=== PATIENT | male | born 1975 | race Two or more races ===

== ENCOUNTER 2020-04-18 13:57 | Inpatient (IN) | payer OTHER ==
[~2020-04-18] VITALS: Ht 208.3 cm; Wt 64.9 kg
--- NOTE | 2020-04-18 14:00 | NUR ---
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 COWORKER DIDN'T SEE HIM FOR ABOUT 30MIN, THEN FOUND HIM LYING PRONE IN A DITCH. PT WAS ALERT & RESPONSIVE, VERY SHAKY. PT DENIES ANY MEDICAL HX/DRUG OR ETOH USE. VS PER EMS: HR 130s, BP 160s/90s, 90% ON RA AND 99% ON 2L, BS 153. PT ARRIVES TO ED A&OX4, STILL VERY SHAKY. NO OBVIOUS INJURIES NOTED. NO FAMILY PRESENT. ERP AT BS IMMEDIATELY.
[2020-04-18] MEDS ORDERED: LORazepam 2 MG/ML, 1ML ONE (14:19)
[2020-04-18] MEDS ORDERED: SODIUM CHLORIDE FLUSH 10ML SYR IVF ONE (14:30)
[2020-04-18] MEDS ORDERED: LORazepam 2 MG/ML, 1ML IVPush ONE (14:30)
[2020-04-18] MEDS ORDERED: SODIUM CHLORIDE 0.9% 1,000ML IVBOLUS ONE ×3 (14:30→16:30)
[2020-04-18 14:33] LABS: MEAN CORPUSCULAR HEMOGLOBIN 33.2 pg (27.5-34.5); MEAN CORPUSCULAR HGB CONC 33.3 g/dL (33.2-36.2); MEAN PLATELET VOLUME 7.5 fL (7.4-10.4); PLATELET COUNT 93 x10^3/uL (130-400); RED BLOOD COUNT 4.16 x10^6/uL (4.38-5.82); RED CELL DISTRIBUTION WIDTH 13.7 % (9.4-14.8)
[2020-04-18 14:48] LABS: ALANINE AMINOTRANSFERASE 86 U/L (12-78); ALBUMIN 3.8 g/dL (3.4-5.0); ANION GAP 9 mmol/L (5-15); CHLORIDE 105 mmol/L (98-107); CREATININE 0.99 mg/dL (0.7-1.3)
[2020-04-18 14:50] LABS: ALKALINE PHOSPHATASE 102 U/L (45-117); BILIRUBIN,TOTAL 0.9 mg/dL (0.2-1.0); TOTAL PROTEIN 7.7 g/dL (6.4-8.2)
[2020-04-18 14:56] LABS: SALICYLATE LEVEL < 1.7 mg/dL (2.8-20.0)
[2020-04-18 15:09] LABS: MD YES
[2020-04-18 15:13] LABS: BAND#(MANUAL) 0.06 x10^3/uL; BANDS%(MANUAL) 1 % (0-7); BASOS#(MANUAL) 0.06 x10^3/uL (0-0.1); BASOS% (MANUAL) 1 % (0-1); EOS#(MANUAL) 0.06 x10^3/uL (0.0-0.4); EOS% (MANUAL) 1 % (1-7); LYMPH#(MANUAL) 0.26 x10^3/uL (1-3.4); LYMPHS% (MANUAL) 4 % (22-44); METAMYELOCYTES# (MANUAL) 0.06 x10^3/uL (0-0); METAMYELOCYTES% (MANUAL) 1 % (0-1); MONOS#(MANUAL) 0.58 x10^3/uL (0.3-2.7); MONOS% (MANUAL) 9 % (2-9); SEG#(MANUAL) 5.31 x10^3/uL (1.8-6.8); SEGS% (MANUAL) 83 % (42-75)
[2020-04-18 15:14] LABS: <PLATELET ESTIMATE> DECREASED
[2020-04-18 15:15] LABS: <PLT MORPHOLOGY> NORMAL PLT MORPH
--- NOTE | 2020-04-18 15:31 | NUR ---
PT STOOD AT SIDE OF BED WITH STAND BY ASSIST TO VOID FOR URINE SAMPLE. URINE SLIGHTLY DARK. PT C/O THIRST, WATER PROVIDED PER ERP. 2ND LITER BOLUS INFUSING. PT STILL VERY SHAKY. ERP NOTIFIED.
--- NOTE | 2020-04-18 15:56 | NUR ---
PT STATES HE'S DOING OKAY, LYING IN GURNEY. HR DOWN TO 110s NOW AFTER 2ND LITER NS. LESS SHAKY. RV'WD POC WITH PT, HE VERBALIZES UNDERSTANDING.
[2020-04-18 15:59] LABS: MICROSCOPIC AUTO
[2020-04-18 16:04] LABS: AMPHETAMINE SCREEN, URINE Negative (Negative); BARBITURATE SCREEN, URINE Negative (Negative); BENZODIAZEPINE SCREEN, URINE Negative (Negative); CANNABINOID SCREEN, URINE Negative (Negative); COCAINE SCREEN, URINE Negative (Negative); METHADONE SCREEN, URINE Negative (Negative); OPIATE SCREEN, URINE Negative (Negative)
--- NOTE | 2020-04-18 16:29 | NUR ---
ERP WAS IN FOR RECHECK.
--- NOTE | 2020-04-18 16:38 | NUR ---
3RD LITER NS INFUSING. WILL REPEAT LACTATE. PT UNDERSTANDS POC.
--- NOTE | 2020-04-18 17:25 | NUR ---
ASSISTED PT UP TO VOID AT SIDE OF BED AGAIN. PT EXTEMELY SHAKY, REQUIRING 1 PERSON ASSIST. ERP NOTIFIED. PLAN TO ADMIT PT. POC RV'WD WITH PT, HE VERBALIZES UNDERSTANDING.
--- NOTE | 2020-04-18 18:36 | NUR ---
PT RESTING IN RD[place], DENIES NEEDS. VSS. AWAITING BED UPSTAIRS.
[2020-04-18 18:52] LABS: TROPONIN I < 0.015 ng/mL (0.000-0.045)
--- NOTE | 2020-04-18 19:12 | NUR ---
TASK RN: PT BACK FROM US AT THIS TIME.
--- NOTE | 2020-04-18 20:00 | NUR ---
AT , JUST CAME BACK FROM VISITING [place] IN [place] STATES PT DOES DRINK "A FEW BEERS, NOT EVERY DAY". REPORTS THAT PT HAD SIMILAR SYNCOPAL EPISODE "A WHILE BACK AFTER HE DIDN'T DRINK FOR A WHILE". RV'WD POC WITH PT AND . PT TO BE TRANSPORTED UP TO 4TH FLOOR.
[2020-04-18 20:33] VITALS: BP 157/89
[2020-04-18] MEDS ORDERED: ONDANSETRON ODT 4 MG PO PRN (23:00)
[2020-04-18] MEDS ORDERED: POLYETHYLENE GLYCOL 17 GM PACKET PO PRN (23:00)
[2020-04-18] MEDS: SODIUM CHLORIDE FLUSH 10ML SYR IVF SCH (23:00)
[2020-04-18] MEDS ORDERED: BISACODYL 10 MG SUPP PR PRN (23:00)
[2020-04-19] VITALS (7 sets, daily range): BP systolic 143–161; BP diastolic 84–98
[2020-04-19] MEDS: HEPARIN 5,000 UNITS/ML, 1ML SQ SCH ×3 (01:40→18:31)
[2020-04-19 04:57] LABS: BASOPHILS % (AUTO) 3 % (0-1); EOSINOPHILS % (AUTO) 1 % (1-7); LYMPHOCYTES % (AUTO) 12 % (22-44); MEAN CORPUSCULAR HGB CONC 34.1 g/dL (33.2-36.2); MEAN PLATELET VOLUME 8.6 fL (7.4-10.4); MONOCYTES % (AUTO) 11 % (2-9); NEUTROPHILS % (AUTO) 73 % (42-75); PLATELET COUNT 100 x10^3/uL (130-400); RED BLOOD COUNT 4.24 x10^6/uL (4.38-5.82); RED CELL DISTRIBUTION WIDTH 13.7 % (9.4-14.8)
[2020-04-19 05:09] LABS: ANION GAP 7 mmol/L (5-15); CALCIUM 8.7 mg/dL (8.5-10.1); CHLORIDE 102 mmol/L (98-107)
[2020-04-19 05:11] LABS: MD NO
[2020-04-19 05:25] LABS: CHOL/HDL RATIO 1.6; CHOLESTEROL, TOTAL 269 mg/dL (140-239); CREATININE 0.75 mg/dL (0.7-1.3); HDL CHOL % 63 % (26-37); HDL CHOLESTEROL (DIRECT) 169 mg/dL (40-60); LDL CHOLESTEROL,CALCULATED 71 mg/dL (54-169); LDL/HDL RATIO 0.4 (0.5-3.0); TRIGLYCERIDES 146 mg/dL (50-200); TROPONIN I < 0.015 ng/mL (0.000-0.045); VLDL CHOLESTEROL 29 mg/dL (0-25)
[2020-04-19] MEDS: SENNA/DOCUSATE TABLET PO SCH (09:00)
[2020-04-19] MEDS: SODIUM CHLORIDE FLUSH 10ML SYR IVF SCH ×2 (09:44→20:01)
[2020-04-19 11:07] LABS: TROPONIN I < 0.015 ng/mL (0.000-0.045)
[2020-04-19] MEDS: LISINOPRIL 10 MG TABLET PO SCH (17:49)
[2020-04-19] MEDS ORDERED: HALOPERIDOL 5 MG/ML IM ONE (23:30)
[2020-04-19] MEDS ORDERED: HALOPERIDOL 5 MG/ML ONE (23:32)
[2020-04-20] MEDS ORDERED: LORazepam 2 MG/ML, 1ML ONE (01:14)
[2020-04-20] MEDS: LORazepam 2 MG/ML, 1ML IV PRN ×3 (01:16→07:10)
[2020-04-20] MEDS: DIAZEPAM 10 MG TABLET PO SCH ×3 (01:21→20:53)
[2020-04-20] MEDS ORDERED: LORazepam 2 MG/ML, 1ML IV PRN ×4 (01:30)
[2020-04-20] MEDS ORDERED: FOLIC ACID 1 MG TABLET PO ONE (01:30)
[2020-04-20] MEDS ORDERED: THIAMINE 200 MG in SODIUM CHLORIDE 0.9% 50 ML IV ONE (01:30)
[2020-04-20 01:35] VITALS: BP 157/86
[2020-04-20] MEDS: HEPARIN 5,000 UNITS/ML, 1ML SQ SCH ×3 (01:58→18:23)
[2020-04-20 07:50] VITALS: BP 138/90
[2020-04-20] MEDS: SENNA/DOCUSATE TABLET PO SCH (09:00)
[2020-04-20 11:08] VITALS: BP 129/87
[2020-04-20] MEDS: LISINOPRIL 10 MG TABLET PO SCH (11:09)
[2020-04-20] MEDS: MULTIVITAMINS/MINERALS TABLET PO SCH (11:09)
[2020-04-20] MEDS: SODIUM CHLORIDE FLUSH 10ML SYR IVF SCH ×2 (11:10→20:53)
[2020-04-20 12:58] VITALS: BP 122/66
[2020-04-20 20:24] VITALS: BP 133/86
[2020-04-21 00:45] VITALS: BP 138/92
[2020-04-21] MEDS: DIAZEPAM 5 MG TABLET PO SCH ×3 (01:30→15:17)
[2020-04-21] MEDS ORDERED: DIAZEPAM 10 MG TABLET ONE (01:33)
[2020-04-21] MEDS: DIAZEPAM 10 MG TABLET PO SCH (01:38)
[2020-04-21] MEDS: HEPARIN 5,000 UNITS/ML, 1ML SQ SCH ×3 (01:43→18:00)
[2020-04-21 08:27] VITALS: BP 142/95
[2020-04-21] MEDS: SODIUM CHLORIDE FLUSH 10ML SYR IVF SCH (08:48)
[2020-04-21] MEDS: MULTIVITAMINS/MINERALS TABLET PO SCH (08:49)
[2020-04-21] MEDS: LISINOPRIL 10 MG TABLET PO SCH (08:49)
[2020-04-21] MEDS: SENNA/DOCUSATE TABLET PO SCH (08:50)
[2020-04-21] MEDS ORDERED: THIAMINE 100 MG in DEXTROSE 5% 50 ML IVPB SCH (09:00)
[2020-04-21 12:14] VITALS: BP 132/84
[2020-04-21] MEDS ORDERED: CHLO25CA9 PO (17:11)
[2020-04-21] MEDS ORDERED: FLU VACC QS2020-21(6MOS UP)/PF 60MCG/0.5 ML SYR IM-VACC ONE (18:00)
== END 2020-04-21 18:57 | disposition home or self-care (01) | DRG 101 ==
LOC: ED 18:22 → EDIP 18:48 → 4WST 20:14
PROVIDERS: ADMIT Family Medicine; ATTEND Family Medicine
DX: R56.9 Unspecified convulsions (principal); E87.2 Acidosis; R00.0 Tachycardia, unspecified; D69.6 Thrombocytopenia, unspecified; L40.9 Psoriasis, unspecified
CPT/HCPCS: 36415; 70450; 70551; 71045; 80048; 80053; 80061; 80307; 81001; 82607; 83605; 84443; 84484; 85025; 87806; 90686; 93005; 93306; 93880; 95819; 96374; 99285; G0378; J1644; J3411; G0475; J1630; J2060; J7030

== ENCOUNTER 2021-02-24 01:24 | Inpatient (IN) | payer OTHER ==
[~2021-02-24] VITALS: Ht 172.7 cm; Wt 74.0 kg
[~2021-02-24 01:24] MED LIST: CHLO25CA9 PO
[2021-02-24] MEDS ORDERED: LORazepam 2 MG/ML, 1ML ONE ×3 (02:21→04:23)
[2021-02-24] MEDS ORDERED: SODIUM CHLORIDE 0.9% 1,000ML IVBOLUS ONE (02:30)
[2021-02-24] MEDS ORDERED: THIAMINE 100 MG in SODIUM CHLORIDE 0.9% 50 ML IVPB ONE (02:30)
[2021-02-24] MEDS ORDERED: LORazepam 2 MG/ML, 1ML IVPush ONE (02:30)
[2021-02-24] MEDS ORDERED: SODIUM CHLORIDE FLUSH 10ML SYR IVF ONE (02:30)
[2021-02-24 02:36] LABS: BASOPHILS % (AUTO) 2 % (0-1); EOSINOPHILS % (AUTO) 2 % (1-7); LYMPHOCYTES % (AUTO) 19 % (22-44); MEAN CORPUSCULAR HEMOGLOBIN 34.2 pg (27.5-34.5); MEAN CORPUSCULAR HGB CONC 34.7 g/dL (33.2-36.2); MEAN PLATELET VOLUME 7.7 fL (7.4-10.4); MONOCYTES % (AUTO) 11 % (2-9); NEUTROPHILS % (AUTO) 66 % (42-75); PLATELET COUNT 177 x10^3/uL (130-400); RED BLOOD COUNT 4.28 x10^6/uL (4.38-5.82); RED CELL DISTRIBUTION WIDTH 14.9 % (9.4-14.8)
[2021-02-24 02:40] LABS: ALBUMIN 3.4 g/dL (3.4-5.0); ANION GAP 6 mmol/L (5-15); CALCIUM 9.1 mg/dL (8.5-10.1); CHLORIDE 102 mmol/L (98-107)
[2021-02-24 02:44] LABS: ALANINE AMINOTRANSFERASE 54 U/L (12-78); ALKALINE PHOSPHATASE 109 U/L (45-117); CREATININE 0.81 mg/dL (0.7-1.3); TOTAL PROTEIN 8.3 g/dL (6.4-8.2)
[2021-02-24] MEDS: LORazepam 2 MG/ML, 1ML IVPush PRN ×3 (03:04→03:56)
[2021-02-24] MEDS ORDERED: LORazepam 1MG TABLET PO PRN ×6 (03:30→21:30)
[2021-02-24] MEDS ORDERED: BACLOFEN 10 MG TABLET PO PRN ×2 (03:30→05:45)
[2021-02-24] MEDS ORDERED: POTASSIUM CHLORIDE 20 MEQ, MAGNESIUM SULFATE 1 GM, FOLIC ACID 1 MG, THIAMINE 200 MG, MV... IV SCH ×2 (03:30→05:45)
[2021-02-24] MEDS ORDERED: LORazepam 0.5MG TABLET PO PRN ×3 (03:30→10:00)
[2021-02-24] MEDS ORDERED: DOCUSATE 100 MG CAPSULE PO PRN ×2 (03:30→10:00)
[2021-02-24] MEDS ORDERED: ALUMINUM/MAG/SIMETHICONE 30 ML UDC PO PRN ×2 (03:30→10:00)
[2021-02-24] MEDS ORDERED: LORazepam 2 MG/ML, 1ML IV PRN ×9 (03:30→21:30)
[2021-02-24] MEDS ORDERED: ACETAMINOPHEN 325 MG TABLET PO PRN ×3 (03:30→10:00)
[2021-02-24] MEDS ORDERED: ENOXAPARIN 40 MG/0.4 ML SQ SCH (03:30)
[2021-02-24] MEDS ORDERED: DIAZEPAM 5 MG TABLET PO SCH (03:30)
[2021-02-24] MEDS ORDERED: ONDANSETRON 2MG/ML, 2ML IV PRN ×2 (03:30→10:00)
[2021-02-24] MEDS ORDERED: DIAZEPAM 5 MG TABLET ONE (03:32)
--- NOTE | 2021-02-24 04:32 | NUR ---
NURSE UNABLE TO TAKE REPORT AT THIS TIME DUE TO BEING IN A PATIENT ROOM.
--- NOTE | 2021-02-24 04:46 | NUR ---
REPORT GIVEN TO ONEIL PUENTES.
[2021-02-24 05:01] VITALS: BP 129/81
[2021-02-24 08:00] VITALS: BP 140/89
[2021-02-24] MEDS ORDERED: MULTIVITAMINS/MINERALS TABLET PO SCH ×2 (09:00)
[2021-02-24 10:14] VITALS: BP 141/87
[2021-02-24] MEDS: MULTIVITAMINS/MINERALS TABLET PO SCH (10:33)
[2021-02-24] MEDS: ENOXAPARIN 40 MG/0.4 ML SQ SCH (10:33)
[2021-02-24 13:38] VITALS: BP 144/91
[2021-02-24] MEDS: LORazepam 2 MG/ML, 1ML IV PRN ×5 (17:39→22:51)
[2021-02-24 19:27] VITALS: BP 127/76
[2021-02-24] MEDS: DIAZEPAM 5 MG TABLET PO SCH (21:41)
[2021-02-24] MEDS ORDERED: HALOPERIDOL 5 MG/ML ONE (22:25)
[2021-02-24] MEDS ORDERED: HALOPERIDOL 5 MG/ML IV ONE ×2 (22:30→23:30)
[2021-02-24] MEDS ORDERED: HALOPERIDOL 5 MG/ML IM ONE (23:00)
[2021-02-24] MEDS ORDERED: DIPHENHYDRAMINE 50 MG/ML, 1ML ONE (23:15)
[2021-02-24] MEDS ORDERED: DIPHENHYDRAMINE 50 MG/ML, 1ML IVPush ONE (23:30)
[2021-02-25 01:05] VITALS: BP 156/107
[2021-02-25] MEDS ORDERED: DIAZEPAM 5 MG TABLET PO SCH (03:30)
[2021-02-25] MEDS: DIAZEPAM 5 MG TABLET PO SCH ×3 (03:52→18:00)
[2021-02-25] MEDS: LORazepam 2 MG/ML, 1ML IV PRN (06:03)
[2021-02-25 08:00] VITALS: BP 134/83
[2021-02-25] MEDS: MULTIVITAMINS/MINERALS TABLET PO SCH (08:21)
[2021-02-25] MEDS: ENOXAPARIN 40 MG/0.4 ML SQ SCH (10:38)
[2021-02-25 15:36] VITALS: BP 155/82
[2021-02-25 19:25] VITALS: BP 144/95
[2021-02-25] MEDS: LORazepam 1MG TABLET PO PRN (20:38)
[2021-02-25] MEDS ORDERED: LORazepam 1MG TABLET PO PRN (21:00)
[2021-02-26 01:30] VITALS: BP 148/104
[2021-02-26 03:05] VITALS: BP 143/102
[2021-02-26 06:20] VITALS: BP 146/94
[2021-02-26 10:41] VITALS: BP 130/91
[2021-02-26] MEDS: ENOXAPARIN 40 MG/0.4 ML SQ SCH (10:44)
[2021-02-26] MEDS: MULTIVITAMINS/MINERALS TABLET PO SCH (10:45)
[2021-02-26] MEDS: LORazepam 1MG TABLET PO PRN (12:40)
[2021-02-26 12:42] VITALS: BP 144/103
[2021-02-26 18:23] VITALS: BP 157/98
[2021-02-27 02:45] VITALS: BP 135/86
[2021-02-27 07:22] VITALS: BP 136/85
[2021-02-27] MEDS: MULTIVITAMINS/MINERALS TABLET PO SCH (08:14)
[2021-02-27] MEDS: ENOXAPARIN 40 MG/0.4 ML SQ SCH (10:16)
[2021-02-27] MEDS ORDERED: CHLO10CA6 PO (12:23)
[2021-02-27 12:30] VITALS: BP 138/87
== END 2021-02-27 16:11 | disposition home or self-care (01) | DRG 432 ==
LOC: ED 01:34 → 4EST 03:00 → UNDOADMIN 03:10 → EDIP 03:10 → ED 05:33 → 4WST 22:00
PROVIDERS: ADMIT Internal Medicine; ATTEND Internal Medicine
DX: K70.10 Alcoholic hepatitis without ascites (principal); G93.41 Metabolic encephalopathy; F10.231 Alcohol dependence with withdrawal delirium; E87.1 Hypo-osmolality and hyponatremia
CPT/HCPCS: 36415; 80053; 80320; 85025; 93005; 96365; 96375; 99285; G0378; J1650; J3411; G0480; J1200; J1630; J2060; J7030